=== PATIENT | female | born 1950 | race Caucasian/White ===

== ENCOUNTER → 2016-12-15 | Outpatient (CLI) | payer BC, MEDICARE ==
--- NOTE | 2016-12-15 11:08 | RADRPT ---
EXAM DATE/TIME: 12/15/2016 00:00 [place] COMPARISON: No previous studies available for comparison. INDICATIONS : Dysphagia, chokes 3-4 times a week. FLUORO TIME: 1.2 minutes IMAGE COUNT: ? CONTRAST: Dose as prescribed by speech pathologist. MEDICAL HISTORY : benign nodule on thyroid and neck. SURGICAL HISTORY : neck lodule removed ENCOUNTER: Initial ACUITY: 1 month PAIN SCORE: 0/10 LOCATION: Bilateral neck FINDINGS: A modified barium swallow was performed with speech pathology. Patient was given a variety of liquids to swallow. There is no evidence of penetration or aspiration with various consistencies. For a full detailed report, see report by the speech pathologist. CONCLUSION: Normal examination. Iftikhar Watson MD on December 15, 2016 at 11:06 Board Certified Radiologist. This report was verified electronically.
== END ==
LOC: HRAD 10:11
PROVIDERS: ATTEND Internal Medicine Gastroenterology
DX: R13.12 Dysphagia, oropharyngeal phase (principal)
CPT/HCPCS: 74230; 92611; G8996; G8997; G8998